=== PATIENT | male | born 2005 | race Hispanic/Latino ===

== ENCOUNTER 2024-12-08 22:12 | Emergency (ER) | payer OTHER ==
[~2024-12-08] VITALS: Ht 167.6 cm; Wt 133.4 kg
[2024-12-08] MEDS: dexaMETHasone SOD PHOSPHATE 4 MG/ML 1ML VIAL IVP STA (22:47)
[2024-12-08] MEDS: BENZONATATE 100 MG CAPSULE PO STA (22:48)
[2024-12-08] MEDS: 0.9%NACL 1000ML 1,000 ML IV STA (22:48)
[2024-12-08] MEDS: ketOROlac 15MG/ML VIAL (15MG/ML) IV STA (22:48)
[2024-12-08] MEDS: acetaMINOPHEN 500 MG TABLET PO STA (22:49)
[2024-12-08 23:12] LABS: SARS-CoV-2, RNA, NAAT NEGATIVE SARS CoV-2 (NEGATIVE)
[2024-12-08 23:18] LABS: INFLUENZA TYPE A Negative For Type A (NEGATIVE); INFLUENZA TYPE B Negative For Type B (NEGATIVE)
[2024-12-08 23:44] VITALS: TEMP 99.7
--- NOTE | 2024-12-09 00:04 | ERN ---
ED Note History of Present Illness Stated Complaint: FEVER,N/V/D Chief Complaint: Flu Symptoms Time Seen by MD: 22:16 Time Seen by Midlevel: 22:18 Dictation: 19-YEAR-OLD MALE WITH NO PAST MEDICAL HISTORY COMING IN COMPLAINING OF COUGH, FEVER AND FATIGUE ONSET MONDAY. PATIENT STATES HE WAS SEEN ON MONDAY BY HIS PCP AND PLACED ON AZITHROMYCIN IN [place]. PATIENT STATES STEALS FEELS THE SAME. Allergies: Coded Allergies: No Known Allergies (Unverified Allergy, Unknown, 12/08/24) Past Medical History Past Medical History: No Pertinent History Surgical History: None Review of System Dictation CONSTITUTIONAL: POSITIVE FOR FEVER AND FATIGUE EYES: NEGATIVE FOR INJURY, PAIN,REDNESS, AND DISCHARGE ENT: NEGATIVE FOR INJURY,PAIN OR SWELLING CARDIOVASCULAR: NEGATIVE FOR CHEST PAIN, PALPITATIONS, AND EDEMA RESPIRATORY: POSITIVE FOR COUGH, ABDOMEN/GI: NEGATIVE FOR ABDOMINAL PAIN, NAUSEA, VOMITING, DIARRHEA, AND CONSTIPATION BACK: NEGATIVE FOR INJURY AND PAIN : NEGATIVE FOR INJURY, BLEEDING AND DISCHARGE MS/EXTREMITY: NEGATIVE FOR INJURY AND DEFORMITY SKIN: NEGATIVE FOR RASH, AND DISCOLORATION NEURO: NEGATIVE FOR HEADACHE, WEAKNESS, NUMBNESS, TINGLING, AND SEIZURE PSYCH: NEGATIVE FOR SUICIDE IDEATION, HOMICIDAL IDEATION, AND HALLUCINATIONS Review of Systems: was completed Initial Vital Sign VS Vital Signs Date Time Temp Pulse Resp B/P (MAP) Pulse Ox O2 Delivery O2 Flow Rate FiO2 12/08/24 22:15 99.7 127 20 175/102 100 Room Air 12/08/24 22:30 0 21 Physical Exam Dictation GENERAL: AWAKE, ALERT, NAD HEAD/FACE: NORMOCEPHALIC, ATRAUMATIC EYES: PERRL, EOMI, VISION AT BASELINE ENT: ORAL CAVITY CLEAR, TMS CLEAR, NO SIGNS OF INFECTION NECK: TRACHEA MIDLINE, SUPPLE, NO NUCHAL RIGIDITY CARDIOVASCULAR: RRR, NORMAL S1/S2, NO MRGS, NO JVD RESPIRATORY: CTAB, NO RESPIRATORY DISTRESS, NO RALES OR WHEEZES ABDOMEN: SOFT, NON-TENDER, NON-DISTENDED, NORMAL BOWEL SOUNDS, NO GUARDING OR REBOUND. SKIN: WARM, DRY, NORMAL TURGOR, NO RASH MS/EXTREMITY: PULSES EQUAL, NO CYANOSIS, NEUROVASCULAR INTACT, FROM NEURO: COAX4, GCS 15, STRENGTH 5/5, CN 2-12 INTACT, NORMAL CEREBELLAR EXAM, NORMAL GAIT, PSYCH: NORMAL BEHAVIOR, MOOD, AND AFFECT NORMAL Results (Laboratory/Radiology) Laboratory/Radiology Laboratory Tests Test 12/08/24 22:24 12/08/24 22:28 Influenza Type A Antigen Negative For Type A Influenza Type B Antigen Negative For Type B SARS-CoV-2, RNA, NAAT NEGATIVE SARS CoV-2 Group A Streptococcus Rapid negative (NEGATIVE) Labs Reviewed?: Yes ED Course ED Course Orders Procedure Category Date Status Time Covid Rna Naat LAB 12/08/24 Complete 22:22 Influenza Type A & B, LAB 12/08/24 Complete Rapid 22:22 Chest 1vw RAD 12/08/24 Taken 22:22 Dexamethasone 4mg/Ml PHA 12/08/24 Complete 1ml Vial (Dexametha 22:22 Ketorolac PHA 12/08/24 Complete Tromethamine 15mg/Ml 22:22 0.9%Nacl 1000ml (Ns PHA 12/08/24 Complete 1000ml) 22:22 Acetaminophen 500mg PHA 12/08/24 Complete Tab (Tylenol 500mg T 22:22 Benzonatate 100 Mg PHA 12/08/24 Complete Capsule (Tessalon 100 22:22 Rapid (Group A Strep) LAB 12/08/24 Complete 22:28 Current Medications Medications (Trade) Dose Ordered Sig/José Luis Route PRN Reason Start Time Stop Time Status Last Admin Dose Admin Acetaminophen (TYLenol 500MG TAB) 1,000 mg ONCE STAT PO 12/08/24 22:22 12/08/24 22:27 DC 12/08/24 22:49 Benzonatate (Tessalon 100mg Caps) 200 mg ONCE STAT PO 12/08/24 22:22 12/08/24 22:27 DC 12/08/24 22:48 Dexamethasone Sodium Phosphate (dexaMETHasone 4MG/ML 1ML VIAL) 6 mg ONCE STAT IVP 12/08/24 22:22 12/08/24 22:27 DC 12/08/24 22:47 Ketorolac Tromethamine (toRADol) 15 mg ONCE STAT IV 12/08/24 22:22 12/08/24 22:27 DC 12/08/24 22:48 Sodium Chloride 1,000 ml @ 1,000 mls/hr Q1H STAT IV 12/08/24 22:22 12/08/24 23:21 DC 12/08/24 22:48 Vital Signs Date Time Temp Pulse Resp B/P (MAP) Pulse Ox O2 Delivery O2 Flow Rate FiO2 5/11/25 23:14 99.7 107 17 159/89 99 Room Air* 0 21 12/08/24 22:49 99.7 12/08/24 22:30 99.9 123 19 146/83 95 Room Air* 0 21 12/08/24 22:15 99.7 127 20 175/102 100 Room Air Medical Decision Making MDM MDM: 19-YEAR-OLD MALE WITH NO PAST MEDICAL HISTORY COMING IN COMPLAINING OF COUGH, FEVER AND FATIGUE ONSET MONDAY. PATIENT STATES HE WAS SEEN ON MONDAY BY HIS PCP AND PLACED ON AZITHROMYCIN IN [place]. PATIENT STATES STEALS FEELS THE SAME. SARS SWABS NEGATIVE. CHEST X-RAY SHOWS NO ACUTE FINDINGS. AFTER FLUIDS, AND MULTIPLE MEDICATIONS PATIENT IS VITAL SIGNS HAVE IMPROVED AND STATES HE FEELS BETTER. DISCUSSED WITH THE PATIENT THE VIRAL SYNDROMES CAN LAST ANYWHERE FROM 7-14 DAYS AND HE NEEDS TO CONTINUE TAKING THE MEDICATIONS THAT HIS PCP PRESCRIBED. EDUCATED THAT IF AFTER MEDICATIONS PATIENT IS STILL FEELS LIKE HE NEEDS TO REPORT BACK TO HIS PCP OR RETURN TO ER. ALSO DISCUSSED EXTENSIVELY WITH THE PATIENT THAT HIT YOU CAN TAKE THE TYLENOL EVERY 6-8 HOURS TO HELP WITH THE FEVER, AND BODY ACHES. EDUCATED ALSO ON DOSE. DIFFERENTIAL DIAGNOSIS: INFLUENZA, COVID, STREP, VIRAL SYNDROME RATIONALE: TESTS CONSIDERED AND ORDERED SECONDARY TO SHARED DECISION MAKING INCLUDE: PREVIOUS OUTSIDE RECORDS REVIEWED: OLD ER VISITS. RISK OF COMPLICATION AND/OR MORBIDITY OR MORTALITY OF PATIENT MANAGEMENT: NONE MEDICATIONS-PER MEDICATION RECONCILIATION NEED FOR HOSPITALIZATION: PATIENT DOES NOT MEET CRITERIA FOR HOSPITALIZATION. NEED FOR EMERGENCY MAJOR/MINOR SURGERY: NO THERE ARE NO SOCIAL CONCERNS WITH THIS PATIENT. PRESCRIPTION DRUG MANAGEMENT PRESCRIPTIONS WILL INCLUDE SYMPTOMATIC CARE PATIENT'S PRIOR EXTERNAL MEDICAL RECORDS FROM OTHER ER VISITS WERE REVIEWED BY ME INDICATED. PRIOR TESTING AND RESULTS FROM PREVIOUS VISITS WERE REVIEWED. PRIOR TESTS WERE TAKEN INTO ACCOUNT WITH MEDICAL DECISION MAKING AND RESOURCE UTILIZATION, INDEPENDENT HISTORIAN/HISTORIANS WERE USED TO OBTAIN COMPLETE MEDICAL HISTORY. I INDEPENDENTLY INTERPRETED THE TEST THAT WERE PERFORMED, RESULTS WERE REVIEWED BY ME AND CONSIDERED FINDINGS ON RADIOLOGY IF ORDERED. MEDICAL MANAGEMENT AND EXAMINATION INTERPRETATION DISCUSSIONS WERE HAD BY ME WITH OTHER QUALIFIED HEALTHCARE PROFESSIONALS INDICATED FOR THE PATIENT'S CARE. DX & DISP Disposition: Discharge Departure Impression: Primary Impression: URI (upper respiratory infection) Condition: Stable Additional Instructions: CONTINUE TAKING YOUR ANTIBIOTICS THAT YOUR PCP PRESCRIBED. STAY HYDRATED. TAKE TYLENOL Q EVERY 6-8 HOURS. REPORT TO THE HOSPITAL HAVE ANY WORSENING SYMPTOMS. Referrals: SELF,REFERRAL (PCP) Time of Disposition: 00:03 I have reviewed the case, and I agree with, Diagnosis and Plan BRUNA GRIMES NP December 09, 2024 00:04
[2024-12-09 00:05] VITALS: BP 157/97; PULSE 96; RESP 16; TEMP 99.2; O2SAT 96
--- NOTE | 2024-12-09 08:58 | HMCIMG ---
Exam Type: CHEST 1VW Clinical Information: COUGH Comparison: None Findings: The lungs are clear of infiltrates. The heart is normal in size. The bony and soft tissue structures of the chest are unremarkable. Impression: Clear lungs.
== END 2024-12-09 00:17 | disposition home or self-care (01) ==
LOC: EDH 22:12
DX: J06.9 Acute upper respiratory infection, unspecified (principal); Z20.822 Contact with and (suspected) exposure to COVID-19
CPT/HCPCS: 99285; 96374; 71045; 87635; 96375; 87880; 87804 ×2; J1100; J1885; J7030

== ENCOUNTER 2025-05-07 08:42 | Emergency (ER) | payer OTHER ==
[~2025-05-07] VITALS: Ht 162.6 cm; Wt 132.9 kg
[2025-05-07] MEDS ORDERED: SULF1TAB42 PO ×2 (09:27→10:54)
[2025-05-07] MEDS ORDERED: CETI5TAB12 PO ×2 (09:27→10:54)
[2025-05-07] MEDS ORDERED: PRED20TA3 PO (09:27)
--- NOTE | 2025-05-07 09:50 | ERN ---
General Chief Complaint: Eye Problems Stated Complaint: EYE Time Seen by MD: 08:49 Source: patient History of Present Illness Initial Comments He is a 19 year old male with no past medical history, came to the ER with swelling of his right upper eyelid since 1 day. Timing/Duration: 24 hours Severity: moderate Associated Symptoms: denies symptoms Allergies: Coded Allergies: No Known Allergies (Unverified Allergy, Unknown, 12/08/24) Home Meds Active Scripts Sulfamethoxazole/Trimethoprim (Bactrim Ds Tablet) 800 Mg-160 Mg Tablet, 1 TAB PO BID for infection of eye lid for 5 Days, #10 TAB 0 Refills Prov:LIZBETH WHEATLEY MD 05/07/25 Cetirizine HCl (Cetirizine HCl) 5 Mg Tablet, 5 MG PO DAILY for allergy for 5 Days, #5 TAB 0 Refills Prov:LIZBETH WHEATLEY MD 05/07/25 Past Medical History Past Medical History: No Pertinent History Past Surgical History: None Family History Dication His mother had diabetes, Pancreatic cancer Social History Dication He is no smoker, doesn't use alcohol or an illegal drugs. Constitutional: (-) chills, (-) diaphoresis, (-) fever, (-) malaise, (-) weakness, (-) other documentation EENTM: (+) eye pain; (-) blurred vision, (-) tearing, (-) double vision, (-) ear pain, (-) ear discharge, (-) nose pain, (-) nose congestion, (-) throat pain, (-) Throat swelling, (-) mouth pain, (-) tooth pain, (-) mouth swelling, (-) other documentation Respiratory: (-) cough, (-) orthopnea, (-) short of breath, (-) stridor, (-) wheezing, (-) other documentation Cardiovascular: (-) chest pain, (-) edema, (-) palpitations, (-) syncope, (-) dyspnea on exertion, (-) other documentation Gastrointestinal/Abdominal: (-) nausea, (-) vomiting, (-) diarrhea, (-) abdominal pain, (-) abdominal distention, (-) constipation, (-) rectal bleeding, (-) dark stool/melena, (-) other documentation Genitourinary: (-) penile discharge, (-) dysuria, (-) frequency, (-) hematuria, (-) pain, (-) other documentation Musculoskeletal: (-) Neck pain, (-) back pain, (-) Flank Pain, (-) joint pain, (-) joint swelling, (-) muscle pain, (-) muscle stiffness, (-) gout, (-) other documentation Neuro: (-) altered mental status, (-) headache, (-) syncope, (-) paralysis, (-) numbness, (-) seizure, (-) pre-existing deficit, (-) tremors, (-) weakness, (-) dizziness, (-) slurred speech, (-) vertigo, (-) other documentation Psych: (-) depression, (-) suicidal ideation, (-) anxiety, (-) emotional problems, (-) auditory hallucinations, (-) visual hallucinations Hematologic/Lymphatic: (-) anemia, (-) blood clots, (-) easy bleeding, (-) easy bruising, (-) swollen glands, (-) other documentation Immunological/Allergic: (-) food allergy, (-) grass allergy, (-) mold allergy, (-) pollen allergy, (-) HIV/AIDS, (-) transplant, (-) othe documentation Physical Exam General Appearance: (+) no apparent distress Orientation: (+) alert, (+) oriented x 3 Head/Face Trauma: No Eye: right eye eyelid inflammation; bilateral eye normal inspection, bilateral eye PERRL, bilateral eye EOMI Ear, Nose, Throat: (+) hearing grossly normal, (+) normal ENT inspection Neck: (+) normal inspection Respiratory: (+) chest non-tender, (+) lungs clear Heart: (+) regular Vascular: (+) no edema, (+) normal peripheral pulse, (+) no JVD Gastrointestinal: (+) soft, (+) non-tender, (+) no organomegaly, (+) bowel cedric nd present Genital: (+) normal exam Extremities: (+) normal range of motion Neurologic/Psychiatric: (+) normal speech, (+) no motor defecits, (+) no sensory deficits Skin: (+) normal color Lymphatic: (+) no adenopathy IVF Sepsis Management IVF Sepsis Management BMI >30kg/m2?: Yes Stroke Patient?: No MDM He is a 19 year old male with no past medical history came to he ER with chief complaint of right eyelid swelling since 1 day. He thinks something bit him on he eye. He has no fever, photophobia, redness. He had vomited once this morning which is reddish brown and it has no blood. He doesn't smoke, drink or use any illicit drugs On examination there is swelling of the right eyelid which is tender. His extraocular movements, pupils are normal. There is no redness of the eyelids. His vitals in the ER are temp 98.4[place] [address], O2 saturation is 98% on room air and pulse is 82. We diagnosed it as blepharitis of right upper eyelid and we prescribed Bactrim for 5 days and cetirizine for 5 days. We also advised him to use ice packs for the swelling. Chief complaint is right eyelid swelling Historian: Patient No comorbidities Limitations: None Differential diagnosis includes infection versus allergic reaction The eye appears clear on exam Does have some tenderness, concern for possible cellulitis. We will treat with the antibiotics. Patient agrees ED Course Vital Signs Date Time Temp Pulse Resp B/P (MAP) Pulse Ox O2 Delivery O2 Flow Rate FiO2 05/07/25 08:56 98.4 81 17 144/78 98 Room Air* 0 21 05/07/25 08:45 98.1 88 18 137/77 97 Room Air 0 Problem List Problem Lists: (1) Blepharitis of eyelid of right eye DX & DISP Disposition: Discharge Departure Impression: Primary Impression: Blepharitis of eyelid of right eye Critical Time: 30 minutes Condition: Stable Scripts Sulfamethoxazole/Trimethoprim (Bactrim Ds Tablet) 800 Mg-160 Mg Tablet 1 TAB PO BID for infection of eye lid for 5 Days, #10 TAB 0 Refills Prov: MARY MUIR DO 05/07/25 Cetirizine HCl (Cetirizine HCl) 5 Mg Tablet 5 MG PO DAILY for allergy for 5 Days, #5 TAB 0 Refills Prov: MARY MUIR DO 05/07/25 Additional Instructions: Use ice packs on the swelling which will help to reduce the swelling. Follow up with PCP within 2 to 3 days after discharge. Continue your medications as prescribed. If the swelling is not improved or worsen then contact your PCP or come to the ER. Continue a balance diet. Referrals: SELF,REFERRAL (PCP) ATTESTATION BY PHYSICIAN I have seen and examined the patient. I reviewed the documentation, medical decision making, and treatment plan as noted by the resident. I agree with the findings and plan of care. Mary Muir AKSHAY MD May 07, 2025 09:50 MARY MUIR DO May 07, 2025 10:55
[2025-05-07 11:01] VITALS: BP 133/84; PULSE 75; RESP 17; TEMP 98.4; O2SAT 98
== END 2025-05-07 11:00 | disposition home or self-care (01) ==
LOC: EDH 08:42
DX: H01.001 Unspecified blepharitis right upper eyelid (principal)
CPT/HCPCS: 99283